=== PATIENT | male | born 1975 | race Caucasian/White ===

== ENCOUNTER 2019-09-03 07:49 | Emergency (ER) | payer OTHER ==
[~2019-09-03] VITALS: Ht 175.3 cm; Wt 167.9 kg
[2019-09-03] MEDS ORDERED: HYDROcodone/APAP 5/325 TABLET ONE (08:24)
[2019-09-03] MEDS ORDERED: ACETAMINOPHEN 325 MG TABLET ONE (08:24)
[2019-09-03] MEDS ORDERED: KETOROLAC 60 MG/2 ML ONE (08:28)
[2019-09-03] MEDS ORDERED: KETOROLAC 30 MG/1 ML IM ONE (08:30)
[2019-09-03] MEDS ORDERED: HYDROcodone/APAP 5/325 TABLET PO ONE (08:30)
[2019-09-03] MEDS ORDERED: ACETAMINOPHEN 325 MG TABLET PO ONE (08:30)
--- NOTE | 2019-09-03 08:35 | NUR ---
PT MEDICATED NOTED ON MAY AND THEN TO XRAY VIA JOSUE
[2019-09-03 08:44] LABS: BASOPHILS % (AUTO) 1 % (0-1); EOSINOPHILS # (AUTO) 0.14 x10^3/uL (0-0.4); EOSINOPHILS % (AUTO) 1 % (1-7); LYMPHOCYTES # (AUTO) 1.15 x10^3/uL (1-3.4); LYMPHOCYTES % (AUTO) 8 % (22-44); MD NO; MEAN CORPUSCULAR HEMOGLOBIN 30.2 pg (27.5-34.5); MEAN CORPUSCULAR HGB CONC 32.5 g/dL (33.2-36.2); MEAN CORPUSCULAR VOLUME 92.7 fL (81-97); MEAN PLATELET VOLUME 8.6 fL (7.4-10.4); MONOCYTES # (AUTO) 1.08 x10^3/uL (0.2-0.8); MONOCYTES % (AUTO) 8 % (2-9); NEUTROPHILS # (AUTO) 11.96 x10^3/uL (1.8-6.8); NEUTROPHILS % (AUTO) 83 % (42-75); PLATELET COUNT 233 x10^3/uL (130-400); RED BLOOD COUNT 5.74 x10^6/uL (4.38-5.82); RED CELL DISTRIBUTION WIDTH 14.1 % (9.4-14.8)
[2019-09-03] MEDS ORDERED: LIDOCAINE-MPF 1%, 5ML ONE (08:47)
[2019-09-03 08:49] LABS: ALBUMIN 3.7 g/dL (3.4-5.0); ANION GAP 6 mmol/L (5-15); CALCIUM 9.1 mg/dL (8.5-10.1); CHLORIDE 104 mmol/L (98-107)
--- NOTE | 2019-09-03 08:53 | NUR ---
CONSENT OBTAINED FOR FLUID REMOVAL OF RIGHT KNEE AND PA AT BEDSIDE PREPARING TO DO SAME
--- NOTE | 2019-09-03 09:33 | NUR ---
AFTER FLUID REMOVED FROM RIGHT KNEE BY PA, TECH APPLIED [facility]IA [employer]LE[employer] BANDAGE AND KNEE IMMOBILIZER AND PROVIDED CRUTCHES
[2019-09-03 10:10] VITALS: BP 133/61
--- NOTE | 2019-09-03 10:10 | NUR ---
PT STATES PAIN DECREASED SINCE IMMOBILIZER PLACED AND MEDS SEEM TO BE WORKING
--- NOTE | 2019-09-03 11:38 | NUR ---
CONTINUES TO AWAIT LAB SYNOVIAL TEST RESULTS. RESTING WITH EYES CLOSED. AT BEDSIDE.
== END 2019-09-03 12:47 | disposition home or self-care (01) ==
LOC: ED 09:30
DX: M10.061 Idiopathic gout, right knee (principal); M13.161 Monoarthritis, not elsewhere classified, right knee
CPT/HCPCS: 20610; 36415; 73564; 80048; 82040; 85025; 85810; 87070; 87205; 89050; 89060; 96372; 99284; J1885